=== PATIENT | female | born 1955 | race Two or more races ===

== ENCOUNTER 2025-02-24 15:24 | Inpatient (IN) | payer OTHER, MEDICAID ==
[~2025-02-24] VITALS: Ht 160 cm; Wt 68.5 kg
--- NOTE | 2025-02-24 16:36 | ED.PDOC ---
Musculoskeletal HPI Comments This is a 69 year old female presenting to the ED with chief complaint of right knee pain. Patient reports that she has been experiencing right knee pain for the past 2 weeks since falling when cleaning her bathtub and injuring her right knee. Patient relays that she is finding it more difficult to walk on her own and has 10/10 at this time. Patient states she is unable to get up from sitting on her own. Denies skin color changes around the knee Denies masses around the knee Denies popping/locking/giving out of the knee Denies fever chills night sweats nausea vomiting Denies previous surgeries to the knee nor significant injury Chief Complaint: Lower Extremity Time Seen by MD: 16:25 Reviewed Notes: Nurses Notes, Medications, Allergies Allergies: Coded Allergies: NO KNOWN ALLERGIES (Unverified , 02/24/25) Home Meds Active Scripts Hydrocodone-Acetaminophen (Hydrocodone Bitartrate/AC 5-325 mg) 1 Tab Tab, 1 TAB PO QID PRN, #40 TAB Prov:SHIRA MONTES MD 02/26/25 Reported Medications Atorvastatin Calcium (ATORVASTATIN CALCIUM) 20 Mg Tab, 1 TAB PO DAILY, #30 TAB 5 Refills 02/24/25 Calcium Carbonate-Cholecalcife (Oyster Shell Calcium 500-10 mg-Mcg) 1 Tab Tab, 1 TAB PO, TAB 02/24/25 Aspirin (Aspirin Low Dose) 81 Mg Chw, 1 TAB PO DAILY, #30 TAB 3 Refills 02/24/25 Hydrochlorothiazide (Hydrochlorothiazide) 25 Mg Tab, 1 TAB PO DAILY, #30 TAB 5 Refills 02/24/25 Information Source: Patient Mode of Arrival: Ambulatory Location: Right Extremity Location: Knee Timing: Weeks Prehospital treatment: None Severity: Moderate Able to Move Extremity: Yes Bear Weight: Limited Pain: Moderate Mechanism: Blunt Trauma Circumstances: Fall Onset of Symptoms: After Trauma Symptoms: Pain DVT Risk Factors: NONE Last Tetanus: Unknown Associated signs and symptoms: Knee pain Past Medical History PAST MEDICAL HISTORY: HTN Surgical History: Denies all surgeries FISCAL CLERK History: No Pertinent FISCAL CLERK History Family History Family History: Reviewed,noncontributory to illness Social History Smoker: Non-Smoker Alcohol: Denies ETOH Use Drugs: Denies Drug Use Lives In: Home Constitutional: denies: chills, diaphoresis, fatigue, fever, malaise, sweats, weakness, others EENTM: denies: blurred vision, double vision, ear bleeding, ear discharge, ear drainage, ear pain, ear ringing, eye pain, eye redness, hearing loss, mouth pain, mouth swelling, nasal discharge, nose bleeding, nose congestion, nose pain, photophobia, tearing, throat pain, throat swelling, voice changes, others Respiratory: denies: cough, hemoptysis, orthopnea, SOB at rest, shortness of breath, SOB with excertion, stridor, wheezing, others Cardiovascular: denies: chest pain, dizzy spells, diaphoresis, Dyspnea on exertion, edema, irregular heart beat, left arm pain, lightheadedness, palpitations, PND, syncope, others Gastrointestinal: denies: abdomen distended, abdominal pain, blood streaked bowels, constipated, diarrhea, dysphagia, difficulty swallowing, hematemesis, melena, nausea, poor appetite, poor fluid intake, rectal bleeding, rectal pain, vomiting, others Genitourinary: denies: abnormal vagina bleeding, burning, dyspareunia, dysuria, flank pain, frequency, hematuria, incontinence, pain, , vagina discharge, urgency, others Neurological: denies: dizziness, fainting, headache, left sided numbness, left sided weakness, numbness, paresthesia, pre-existing deficit, right sided numbness, right sided weakness, seizure, speech problems, tingling, tremors, weakness, others Musculoskeletal: reports: others (Rt knee pain); denies: back pain, gout, joint pain, joint swelling, muscle pain, muscle stiffness, neck pain Integumetry: denies: bruises, change in color, change in hair/nails, dryness, laceration, lesions, lumps, rash, wounds, others Allergic/Immunocompromised: denies: Difficulty Healing, Frequent Infections, Hives, Itching, others Hematologic/Lymphatic: denies: anemia, blood clots, easy bleeding, easy bruisin g, swollen glands, others Endocrine: denies: excessive hunger, excessive sweating, excessive thirst, excessive urination, flushing, intolerance to cold, intolerance to heat, unexplained weight gain, unexplained weight loss, others Psychiatric: denies: anxiety, bipolar disorder, depression, hopeless, panic disorder, schizophrenia, sleepless, suicidal, others All Other Systems: Reviewed and Negative Physical Exam General Appearance: No Apparent Distress, Normal HEENT: Normal ENT Inspection, Pharynx Normal, TMs Normal Neck: Full Range of Motion, Non-Tender, Normal, Normal Inspection Respiratory: Chest Non-Tender, Lungs Clear, No Accessory Muscle Use, No Respiratory Distress, Normal Breath Sounds Cardiovascular: No Edema, No JVD, No Murmur, No Gallop, Normal Peripheral Pulses, Regular Rate/Rhythm Breast Exam: Deferred Gastrointestinal: No Organomegaly, Non Tender, No Pulsatile Mass, Normal Bowel Sounds, Soft Genitalia: Deferred Pelvic: Deferred Rectal: Deferred Extremities: No calf tenderness, Normal capillary refill, Normal inspection, Normal range of motion, Non-tender, No pedal edema Musculoskeletal : Location: Right Extremity Location: Knee (Rt knee TTP. Pain with flexion.) Apperance: Normal Neurologic: Alert, industrial education teacher II-XII nml as Tested, No Motor Deficits, Normal Affect, Normal Mood, No Sensory Deficits Cerebellar Function: Normal Reflexes: Normal Skin: Dry, Normal Color, Warm Lymphatic: No Adenopathy Was a procedure done? Was a procedure done?: No Differential Diagnosis EXT Differential Diagnosis: Fracture, Sprain, Contusion, Strain X-Ray, Labs, Meds, VS Vital Signs Date Time Temp Pulse Resp B/P (MAP) Pulse Ox O2 Delivery O2 Flow Rate FiO2 02/24/25 18:30 Room Air* 0 21 02/24/25 18:25 98.1 85 12 137/67 (90) 98 98.1 02/24/25 15:25 97.3 101 18 136/62 95 97.3 Lab Test 02/24/25 16:45 Range/Units White Blood Count 13.1 H 4.4-10.8 10^3/uL Red Blood Count 5.53 H 4.0-5.20 10^6/uL Hemoglobin 14.1 12.2-16.2 g/dL Hematocrit 43.0 36.0-46.0 % Mean Corpuscular Volume 77.7 L 80.0-100.0 fL Mean Corpuscular Hemoglobin 25.4 L 28.0-32.0 pg Mean Corpuscular Hemoglobin Concent 32.7 32.0-36.0 g/dL Red Cell Distribution Width 16.1 H 11.8-14.3 % Platelet Count 377 140-450 10^3/uL Mean Platelet Volume 8.9 6.9-10.8 fL Neutrophils (%) (Auto) 77.6 37.0-80.0 % Lymphocytes (%) (Auto) 13.5 10.0-50.0 % Monocytes (%) (Auto) 7.3 0.0-12.0 % Eosinophils (%) (Auto) 0.9 0.0-7.0 % Basophils (%) (Auto) 0.7 0.0-2.0 % Neutrophils # (Auto) 10.1 H 1.6-8.6 10 ^3/uL Lymphocytes # (Auto) 1.8 0.4-5.4 10 ^3/uL Monocytes # (Auto) 1.0 0-1.3 10 ^3/uL Eosinophils # (Auto) 0.1 0-0.8 10 ^3/uL Basophils # (Auto) 0.1 0-0.2 10 ^3/uL Nucleated Red Blood Cells 0.1 % Sodium Level 134 L 136-145 mmol/L Potassium Level 3.2 L 3.5-5.1 mmol/L Chloride Level 95 L 98-107 mmol/L Carbon Dioxide Level 26 20-31 mmol/L Anion Gap 13 5-15 Blood Urea Nitrogen 17 9-23 mg/dL Creatinine 1.19 H 0.550-1.02 mg/dL Glomerular Filtration Rate Calc 49 >90 mL/min BUN/Creatinine Ratio 14.3 10.0-20.0 Serum Glucose 401 *H 74-106 mg/dL Hemoglobin A1c 9.9 H <5.7 % A1C Calcium Level 10.0 8.7-10.4 mg/dL [place] [id number] Ph: [phone] DIAGNOSTIC IMAGING Diagnostic Imaging Report : [id number] Signed PATIENT: SORAYA CHRISTIAN ACCT: [id number] UNIT: [id number] : 1955 LOC: ER ROOM / BED: / AGE / SEX: 69 / F ADM STATUS: REG ER SERVICE [id number] ORDERING PHYSICIAN: MICHEAL WOLF NP PROCEDURE(s): RKNCT - CT R KNEE WO CONTRAST REASON: Fall. ORDER NUMBER(s): [id number], ACCESSION NUMBER(s): [id number] EXAM: CT CT R KNEE WO CONTRAST INDICATION: Fall. TECHNIQUE: Axial images of right knee without contrast have been obtained along with coronal and sagittal reformatted images. All CT scans at this facility use dose modulation, iterative reconstruction, and/or weight based dosing when appropriate to reduce radiation dose to as low as reasonably achievable. COMPARISON: None FINDINGS: BONES: No CT evidence of an acute fracture or aggressive osseous lesion. Diffusely decreased bone mineral density. MUSCLES: No abnormal attenuation. JOINT SPACES: No joint effusion. TENDONS/LIGAMENTS: Intact. OTHER: Vascular calcifications. IMPRESSION: 1. No CT evidence of an acute fracture. ATED BY: GABRIELA GUERRIER MD DICTATED DATE/TIME: 02/24/251702 SIGNED BY: GABRIELA GUERRIER MD SIGNED DATE/TIME: 02/24/251702 CC: X-Ray, Labs, Meds, VS Comment This is a 69 year old female presenting to the ED with chief complaint of right knee pain. Patient arrives alert and oriented, ABC's intact, afebrile, vital signs stable, saturating well in room air Peripheral IV insertion+ labs were ordered. CBC was ordered to exclude anemia, blood loss, or infection. BMP was ordered to exclude electrolyte abnormalities, renal failure, dehydration, hyperglycemia Urinalysis was ordered to rule out UTI or hematuria. Diagnostic imaging ordered by me and results interpreted by radiology : Rt knee CT Labs show normal electrolytes and elevated blood sugar at 400 Patients work up was remarkable for pain with possible ligament injury. The patient may benefit from MRI. Patient will also be admitted for hyperglycemia The patient's workup reveals that the patient needs further evaluation and/or treatment for the above medical conditions. Patient verbalized understanding of the above and is awaiting further evaluation by the admitting service. Time of 1ST Reevaluation: 17:00 Reevaluation 1ST: Unchanged Patient Education/Counseling: Diagnosis, Treatment Family Education/Counseling: No Family Present Departure 1 Departure Time of Disposition: 17:13 Impression: Primary Impression: Internal derangement of knee Qualified Codes: M23.91 - Unspecified internal derangement of right knee Additional Impressions: Hyperglycemia Fall Qualified Codes: W19.XXXA - Unspecified fall, initial encounter Disposition: ADMITTED INPATIENT Condition: Fair e-Prescriptions Hydrocodone-Acetaminophen (Hydrocodone Bitartrate/AC 5-325 mg) 1 Tab Tab 1 TAB PO QID PRN, #40 TAB Prov: SHIRA MONTES MD 02/26/25 Discharged With: Self Critical Care Note Critical Care Time?: No Stability Stability form required: No Heart Score Heart Score: Heart Score Response (Comments) Value History N/A 0 EKG N/A 0 Age N/A 0 Risk Factors N/A 0 Troponin N/A 0 Total 0 I personally scribed for MICHEAL WOLF NP ([email or web address]) on 02/24/25 at 16:36. Electronically submitted by Veit Napier ([email or web address]). I personally scribed for MICHEAL WOLF NP ([email or web address]) on 02/24/25 at 17:13. Electronically submitted by Viet Napier ([email or web address]). MICHEAL WOLF NP Feb 24, 2025 16:36
[2025-02-24 16:56] LABS: Hematocrit 43.0 % (36.0-46.0); Hemoglobin 14.1 g/dL (12.2-16.2); Mean Corpuscular Hemoglobin 25.4 pg (28.0-32.0); Mean Corpuscular Volume 77.7 fL (80.0-100.0); Nucleated Red Blood Cells % 0.1 %
[2025-02-24 17:03] LABS: Anion Gap 13 (5-15); Calcium 10.0 mg/dL (8.7-10.4); Carbon Dioxide 26 mmol/L (20-31); Chloride 95 mmol/L (98-107); Potassium 3.2 mmol/L (3.5-5.1); Sodium 134 mmol/L (136-145)
--- NOTE | 2025-02-24 17:06 | DVH ---
EXAM: CT CT R KNEE WO CONTRAST INDICATION: Fall. TECHNIQUE: Axial images of right knee without contrast have been obtained along with coronal and sagi ttal reformatted images. All CT scans at this facility use dose modulation, iterative reconstruction, and/or weight based dosing when appropriate to reduce radiation dose to as low as reasonably achieva ble. COMPARISON: None FINDINGS: BONES: No CT evidence of an acute fracture or aggressive osseous lesion. Diffusely decreased bone min eral density. MUSCLES: No abnormal attenuation. JOINT SPACES: No joint effusion. TENDONS/LIGAMENTS: Intact. OTHER: Vascular calcifications. IMPRESSION: 1. No CT evidence of an acute fracture.
[2025-02-24 17:08] LABS: BUN/Creatinine Ratio 14.3 (10.0-20.0); Blood Urea Nitrogen 17 mg/dL (9-23)
[2025-02-24 17:13] LABS: Glucose 401 mg/dL (74-106)
[2025-02-24] MEDS ORDERED: InsuLIN REG 1unit/0.01ml Soln (100units/ml) SC ONE (17:30)
[2025-02-24] MEDS ORDERED: DEXTROSE (50%) 50ML SYRG IV PRN (19:00)
[2025-02-24] MEDS ORDERED: ACETAMINOPHEN 325 MG TAB PO PRN (19:00)
[2025-02-24] MEDS ORDERED: DOCUSATE SOD 100 MG CAP PO PRN (19:00)
--- NOTE | 2025-02-24 19:10 | DVHHP2 ---
History of Present Illness Reason for Visit: Internal derangement of knee History of Present Illness The patient is a 69-year-old female with past medical history of hyperlipidemia, hypertension, and diabetes mellitus who presented to [facility] ED with complaint of right knee pain. Patient reports that she has been experiencing right knee pain for the past 2 weeks since falling when cleaning her bathtub with sustained right knee injury. Patient states that she is finding it more difficult to walk on her own, rating pain 10/10 numeric scale at this time. Patient was seen and evaluated in the ED, laboratory data shows WBC 13.1, platelets 377, sodium 134, potassium 3.2, BUN 17, creatinine 1.19, GFR 49, glucose 101, calcium 10.0, blood pressure 136/62, heart rate 100, temperature 97.3 F, O2 saturation 95% on room air. Right knee CT showed no acute fracture, effusion or dislocation. Patient was given morphine sulfate 2 mg IV x1, please see medication orders section in the computer. On my assessment, patient denied chest pain, no dizziness, no headache, no shortness of breath, no abdominal pain, no nausea, no vomiting, no fever, no chills. Patient was admitted for further evaluation and medical management. Past Medical History HTN, DM, HLD Past Surgical History Denies all surgeries Family History Reviewed, noncontributory to the management of this case. Past Social History The patient lives at home, denies smoking, alcohol or illicit drugs abuse. Review of Systems Constitutional: No: Fever, Chills, Sweats, Weakness, Malaise, Other Eyes: No: Pain, Vision change, Conjunctivae inflammation, Eyelid inflammation, Other, Redness ENT: No: Ear pain, Ear discharge, Nose pain, Nose discharge, Nose congestion, Mouth pain, Mouth swelling, Throat pain, Throat swelling, Other Respiratory: No: Cough, Dry, Shortness of breath, SOB with excertion, Wheezing, Hemoptysis, Pleuritic Pain, Sputum, Wheezing, Other Cardiovascular: No: Chest Pain, Palpitations, Orthopnea, Paroxysmal Noc. Dyspnea, Edema, Lt Headedness, Other Gastrointestinal: No: Nausea, Vomiting, Abdominal Pain, Diarrhea, Constipation, Melena, Hematochezia, Other Genitourinary: No Dysuria, No Frequency, No Incontinence, No Hematuria, No Retention, No Other Musculoskeletal: other (Right knee pain); No: neck pain, shoulder pain, arm pain, back pain, hand pain, leg pain, foot pain Skin: No: Rash, Lesions, Jaundice, Bruising, Other Neurological: No: Weakness, Numbness, Incoordination, Change in speech, Confusion, Seizures, Other Allergies: Coded Allergies: NO KNOWN ALLERGIES (Unverified , 02/24/25) Medications Current Medications Medications Dose Ordered Sig/Nuzhat Route Start Time Stop Time Status Last Admin Dose Admin Atorvastatin Calcium 20 mg HS PO 02/24/25 22:00 UNV Aspirin 81 mg DAILY PO 02/25/25 10:00 UNV Diagnostic Test (Pha) 1 strip IQ4HR 02/24/25 20:00 UNV Insulin Human Regular IQ4HR SC 02/24/25 20:00 UNV Dextrose 50 ml UD PRN IV 02/24/25 19:00 UNV Sodium Chloride 1,000 ml @ 60 mls/hr [id number] IV 02/24/25 19:00 UNV Acetaminophen/ Hydrocodone Bitart 1 tab Q4HP PRN PO 02/24/25 19:00 UNV Ondansetron HCl 4 mg Q4HP PRN IV 02/24/25 19:00 UNV Docusate Sodium 100 mg BIDPRN PRN PO 02/24/25 19:00 UNV Acetaminophen 650 mg Q6HP PRN PO 02/24/25 19:00 UNV Morphine Sulfate 2 mg Q4HPRN PRN IV 02/24/25 19:00 UNV Quetiapine Fumarate 25 mg HS PO 02/24/25 22:00 UNV Gabapentin 300 mg TID PO 02/24/25 22:00 UNV Exam Vital Signs Vital Signs Date Time Temp Pulse Resp B/P (MAP) Pulse Ox O2 Delivery O2 Flow Rate FiO2 02/24/25 15:25 97.3 101 18 136/62 95 97.3 General Appearance: Alert, Oriented X3, Cooperative, No acute distress HEENT: Atraumatic, PERRLA, EOMI, Mucous membr. moist/pink Respiratory: Clear to auscultation, Normal air movement Cardiovascular: Regular rate, Normal S1, Normal S2, No murmurs Abdominal: Normal bowel sounds, Soft, No tenderness, No hepatospenomegaly, No masses Extremities: No clubbing, No cyanosis, No edema, Normal pulses, Other (Right knee tenderness) Skin: No rashes, No breakdown, No significant lesion Neuro: Normal speech, Normal tone, Sensation intact, Cranial nerves 3-12 NL, Re flexes 2+, Other (Unsteady gait) Psych/Mental Status: Mental status NL, Mood NL Labs/Xrays Labs Test 02/24/25 16:45 Range/Units White Blood Count 13.1 H 4.4-10.8 10^3/uL Red Blood Count 5.53 H 4.0-5.20 10^6/uL Hemoglobin 14.1 12.2-16.2 g/dL Hematocrit 43.0 36.0-46.0 % Mean Corpuscular Volume 77.7 L 80.0-100.0 fL Mean Corpuscular Hemoglobin 25.4 L 28.0-32.0 pg Mean Corpuscular Hemoglobin Concent 32.7 32.0-36.0 g/dL Red Cell Distribution Width 16.1 H 11.8-14.3 % Platelet Count 377 140-450 10^3/uL Mean Platelet Volume 8.9 6.9-10.8 fL Neutrophils (%) (Auto) 77.6 37.0-80.0 % Lymphocytes (%) (Auto) 13.5 10.0-50.0 % Monocytes (%) (Auto) 7.3 0.0-12.0 % Eosinophils (%) (Auto) 0.9 0.0-7.0 % Basophils (%) (Auto) 0.7 0.0-2.0 % Neutrophils # (Auto) 10.1 H 1.6-8.6 10 ^3/uL Lymphocytes # (Auto) 1.8 0.4-5.4 10 ^3/uL Monocytes # (Auto) 1.0 0-1.3 10 ^3/uL Eosinophils # (Auto) 0.1 0-0.8 10 ^3/uL Basophils # (Auto) 0.1 0-0.2 10 ^3/uL Nucleated Red Blood Cells 0.1 % Sodium Level 134 L 136-145 mmol/L Potassium Level 3.2 L 3.5-5.1 mmol/L Chloride Level 95 L 98-107 mmol/L Carbon Dioxide Level 26 20-31 mmol/L Anion Gap 13 5-15 Blood Urea Nitrogen 17 9-23 mg/dL Creatinine 1.19 H 0.550-1.02 mg/dL Glomerular Filtration Rate Calc 49 >90 mL/min BUN/Creatinine Ratio 14.3 10.0-20.0 Serum Glucose 401 *H 74-106 mg/dL Calcium Level 10.0 8.7-10.4 mg/dL PATIENT: SORAYA CHRISTIAN ACCT: [id number] UNIT: [id number] : 1955 LOC: ER ROOM / BED: / AGE / SEX: 69 / F ADM STATUS: REG ER SERVICE 1607 ORDERING PHYSICIAN: MICHEAL WOLF NP PROCEDURE(s): RKNCT - CT R KNEE WO CONTRAST REASON: Fall. ORDER NUMBER(s): [id number], ACCESSION NUMBER(s): [id number] EXAM: CT CT R KNEE WO CONTRAST INDICATION: Fall. TECHNIQUE: Axial images of right knee without contrast have been obtained along with coronal and sagittal reformatted images. All CT scans at this facility use dose modulation, iterative reconstruction, and/or weight based dosing when appropriate to reduce radiation dose to as low as reasonably achievable. COMPARISON: None FINDINGS: BONES: No CT evidence of an acute fracture or aggressive osseous lesion. Diffusely decreased bone mineral density. MUSCLES: No abnormal attenuation. JOINT SPACES: No joint effusion. TENDONS/LIGAMENTS: Intact. OTHER: Vascular calcifications. IMPRESSION: 1. No CT evidence of an acute fracture. SEPSIS Sepsis Screen Date sepsis recognized/suspect: Feb 24, 2025 Time Sepsis recognized/suspect: 1325 Recent Procedure: No On Antibiotic Therapy: No Respiratory Rate >20: No Heart Rate >90: Yes Temp<36 C (96.8 F) or >38.3 C: No SBP <90 or MAP <65 mmHG: No New Acute Mental Status Change: No Is the patient on CPAP, BIPAP,: No Physician Orders Ct R Knee Wo Contrast (02/24/25 16:07) Urinalysis (02/24/25 16:07) Sodium Chloride 0.9% (02/24/25 19:00) Hemoglobin A1c (02/24/25 18:48) Atorvastatin (Lipitor) (02/24/25 22:00) Aspirin Tablet (02/25/25 10:00) Glucose Blood (Accu-Chek Comfort Curve T (02/24/25 20:00) Insulin R (Human) (Insulin R) (02/24/25 20:00) Dextrose 50% Syringe (02/24/25 19:00) Allergies (02/24/25 18:48) Code Status (02/24/25 18:48) Sodium Chloride 0.9% (02/24/25 19:00) Oxygen Per Hour (02/24/25 18:48) Hydrocodone-Acet 5/325mg Tab ([place] 5/32 (02/24/25 19:00) Ondansetron Hcl (Zofran) (02/24/25 19:00) Docusate Sodium Capsule (Colace Capsule) (02/24/25 19:00) Complete Blood Count (02/25/25 04:00) Comprehensive Metabolic Panel (02/25/25 04:00) Condition: Serious (02/24/25 18:48) Acetaminophen Tablet (Tylenol Tablet) (02/24/25 19:00) Bedrest With Bathroom Privileg (02/24/25 18:48) Morphine Sulfate Injection (02/24/25 19:00) Sequential Compression Device (02/24/25 ) Quetiapine Fumarate Tablet (Seroquel Tab (02/24/25 22:00) Gabapentin Capsule (Neurontin Capsule) (02/24/25 22:00) Admit (02/24/25 19:07) Nitroglycerin Sublingual (Ntrostat Subli (02/24/25 19:15) Morphine Sulfate Injection (02/24/25 19:15) Notify Md Of Changes From Base (02/24/25 19:07) Emergency Dysrhythmia Protocol (02/24/25 19:07) Oxygen By Nasal Cannula (02/24/25 19:07) Ceftriaxone Ivpb Rocephin (02/25/25 09:00) Ceftriaxone Ivpb Rocephin (02/24/25 19:15) Vital Signs Date Time Temp Pulse Resp B/P (MAP) Pulse Ox O2 Delivery O2 Flow Rate FiO2 02/24/25 15:25 97.3 101 18 136/62 95 97.3 Laboratory Tests Test 02/24/25 16:45 White Blood Count 13.1 10^3/uL (4.4-10.8) H Assessment/Plan Assessment/Plan Internal derangement of knee Leukocytosis, unspecified Electrolyte imbalance Unspecified internal derangement of right knee Diabetes mellitus with hyperglycemia Unspecified fall, initial encounter Plan 1. Admit to med surge unit 2. Breathing treatment 3. Pain control management 4. IV antibiotic management 5. Management of fluids and electrolytes 6. Consultation for hospitalist 7. Diagnostic test right knee CT 8. DVT prophylaxis-on SCDs 9. Repeat labs CBC, CMP in a.m. 10. Home medication reviewed and reconciled 11. Continue with current medical management 12. Treatment plan discussed with patient and RN. Patient verbalized understanding. Plan discussed with: Patient, Other (RN) My Orders Orders - DINESH ARTEAGA DNP Procedure Category Date Status Time Hemoglobin A1c LAB 02/24/25 In Process 18:48 Atorvastatin (Lipitor) PHA 02/24/25 Logged 22:00 Aspirin Tablet PHA 02/25/25 Logged 10:00 Glucose Blood PHA 02/24/25 Logged (Accu-Chek Comfort 20:00 Insulin R (Human) PHA 02/24/25 Logged (Insulin R) 20:00 Dextrose 50% Syringe PHA 02/24/25 Logged 19:00 Allergies GUME 02/24/25 In Process 18:48 Code Status CODE 02/24/25 Transmitted 18:48 Sodium Chloride 0.9% PHA 02/24/25 Logged 19:00 Oxygen Per Hour RT 02/24/25 Transmitted 18:48 Hydrocodone-Acet PHA 02/24/25 Logged 5/325mg Tab ([place] 19:00 Ondansetron Hcl PHA 02/24/25 Logged (Zofran) 19:00 Docusate Sodium PHA 02/24/25 Logged Capsule (Colace 19:00 Complete Blood Count LAB 02/25/25 Verified 04:00 Comprehensive LAB 02/25/25 Verified Metabolic Panel 04:00 Condition: Serious GUME 02/24/25 In Process 18:48 Acetaminophen Tablet PHA 02/24/25 Logged (Tylenol Tablet) 19:00 Bedrest With Bathroom GUME 02/24/25 In Process Privileg 18:48 Morphine Sulfate PHA 02/24/25 Logged Injection 19:00 Sequential GUME 02/24/25 In Process Compression Device Quetiapine Fumarate PHA 02/24/25 Logged Tablet (Seroquel Tab 22:00 Gabapentin Capsule PHA 02/24/25 Logged (Neurontin Capsule) 22:00 Admit ADMIT 02/24/25 Transmitted 19:07 Nitroglycerin [facility] 02/24/25 Logged Sublingual (Ntrostat 19:15 Morphine Sulfate PHA 02/24/25 Logged Injection 19:15 Notify Md Of Changes GUME 02/24/25 In Process From Base 19:07 Emergency Dysrhythmia [facility] 02/24/25 In Process Protocol 19:07 Oxygen By Nasal RT 02/24/25 Transmitted Cannula 19:07 Ceftriaxone Ivpb PHA 02/25/25 Verified Rocephin 09:00 Ceftriaxone Ivpb PHA 02/24/25 Verified Rocephin 19:15 Problem List: (1) Internal derangement of knee (2) Leukocytosis, unspecified (3) Electrolyte imbalance (4) Unspecified internal derangement of right knee (5) Diabetes mellitus with hyperglycemia (6) Unspecified fall, initial encounter Date of Service: Feb 24, 2025 Billing Provider: DINESH ARTEAGA DNP Common Visit Codes: [id number] INP/OBS CARE (HIGH) DINESH ARTEAGA DNP Feb 24, 2025 19:10
[2025-02-24] MEDS ORDERED: NITROGLYCERIN 0.4 MG SL TAB SL PRN (19:15)
[2025-02-24] MEDS ORDERED: MORPHINE SULFATE INJ 2 MG/ml SYRG IV PRN (19:15)
[2025-02-24] MEDS: SODIUM CHLORIDE 0.9% 1,000 ML IV ONE (19:34)
[2025-02-24] MEDS: POTASSIUM CHL 20 Meq TABLET PO ONE (19:34)
[2025-02-24] MEDS: ACCU-CHEK COMFORT CURVE STRIP VI SCH (20:21)
[2025-02-24] MEDS: HYDROcodone-ACET 5/325MG TAB PO PRN (20:28)
[2025-02-24] MEDS: ONDANSETRON HCL 4 MG/2 ML VIAL IV PRN (20:28)
[2025-02-24] MEDS: cefTRIAXone 1GM/50ML D5W 50 ML IV ONE (20:29)
[2025-02-24] MEDS: InsuLIN REG 1unit/0.01ml Soln (100units/ml) SC SCH (20:31)
[2025-02-24 22:26] VITALS: BP 143/50; PULSE 70; RESP 19; RESP 70; TEMP 98; O2SAT 97
[2025-02-24] MEDS: GABAPENTIN 300 MG CAP PO SCH (22:29)
[2025-02-24] MEDS: ATORVASTATIN 20 MG TAB PO SCH (22:29)
[2025-02-24] MEDS: SODIUM CHLORIDE 0.9% 1,000 ML IV SCH (22:30)
[2025-02-24] MEDS: MORPHINE SULFATE INJ 2 MG/ml SYRG IV PRN (22:49)
[2025-02-24] MEDS ORDERED: HYDR25TA4 PO (23:15)
[2025-02-24] MEDS ORDERED: ASPI81CH59 PO (23:15)
[2025-02-24] MEDS ORDERED: [UNRECOGNIZED DRUG - CODE] PO (23:15)
[2025-02-24] MEDS ORDERED: ATOR20TA50 PO (23:15)
[2025-02-25 00:59] VITALS: BP 106/61; PULSE 71; RESP 19; TEMP 97.9; O2SAT 98
[2025-02-25 05:26] VITALS: BP 112/61; PULSE 66; RESP 20; TEMP 98; O2SAT 96
[2025-02-25 07:19] LABS: Hematocrit 38.1 % (36.0-46.0); Hemoglobin 12.9 g/dL (12.2-16.2); Mean Corpuscular Hemoglobin 26.4 pg (28.0-32.0); Mean Corpuscular Volume 78.0 fL (80.0-100.0); Nucleated Red Blood Cells % 0.1 %
[2025-02-25 07:26] LABS: Alanine Aminotransferase 17 U/L (7-40); Alkaline Phosphatase 93 U/L (46-116); Anion Gap 11 (5-15); BUN/Creatinine Ratio 12.9 (10.0-20.0); Blood Urea Nitrogen 11 mg/dL (9-23); Calcium 8.9 mg/dL (8.7-10.4); Carbon Dioxide 26 mmol/L (20-31); Chloride 100 mmol/L (98-107); Sodium 137 mmol/L (136-145); Total Protein 6.2 g/dL (5.7-8.2)
[2025-02-25 07:28] LABS: Albumin 4.0 g/dL (3.2-4.8); Bilirubin, Total 0.4 mg/dL (0.2-1.0)
[2025-02-25 07:31] LABS: Glucose 268 mg/dL (74-106); Potassium 3.2 mmol/L (3.5-5.1)
[2025-02-25 08:00] VITALS: BP 117/76; PULSE 67; RESP 18; TEMP 98.5; O2SAT 96
[2025-02-25] MEDS: cefTRIAXone 1GM/50ML D5W 50 ML IV SCH (09:06)
[2025-02-25 13:00] VITALS: BP 101/60; PULSE 66; RESP 18; TEMP 98.4; O2SAT 96
--- NOTE | 2025-02-25 13:16 | DVHPN2 ---
Reviewed: Care Plan, H&P, Labs, Medications, Previous Orders, Radiology Changes from previous H/P or p: No Changes Eyes: No Pain, No Vision change, No Conjunctivae inflammation, No Eyelid inflammation, No Other, No Redness ENT: No Ear pain, No Ear discharge, No Nose pain, No Nose discharge, No Nose congestion, No Mouth pain, No Mouth swelling, No Throat pain, No Throat swelling, No Other Cardiovascular: No Chest Pain, No Palpitations, No Orthopnea, No Paroxysmal Noc. Dyspnea, No Edema, No Lt Headedness, No Other Respiratory: No Cough, No Dry, No Shortness of breath, No SOB with excertion, No Wheezing, No Hemoptysis, No Pleuritic Pain, No Sputum, No Other Gastrointestinal: No Nausea, No Vomiting, No Abdominal Pain, No Diarrhea, No Constipation, No Melena, No Hematochezia, No Other Genitourinary: No Dysuria, No Frequency, No Incontinence, No Hematuria, No Retention, No Other Musculoskeletal: other (Right knee pain); No neck pain, No shoulder pain, No arm pain, No back pain, No hand pain, No leg pain, No foot pain Skin: No Rash, No Lesions, No Jaundice, No Bruising, No Other Objective Vitals Vital Signs Date Time Temp Pulse Resp B/P (MAP) Pulse Ox O2 Delivery O2 Flow Rate FiO2 02/25/25 08:00 98.5 67 18 117/76 (90) 96 98.5 02/24/25 22:26 Room Air* 0 21 Intake/Output Intake and Output 02/25/25 07:00 Intake Total 400 ml Balance 400 ml Intake Oral 400 ml # Voids 1 Medications Current Medications Medications Dose Ordered Sig/Nuzhat Route Start Time Stop Time Status Last Admin Dose Admin Atorvastatin Calcium 20 mg HS PO 02/24/25 22:00 02/24/25 22:29 20 MG Aspirin 81 mg DAILY PO 02/25/25 10:00 02/25/25 09:06 81 MG Diagnostic Test (Pha) 1 strip IQ4HR 02/24/25 20:00 02/25/25 09:07 1 STRIP Insulin Human Regular IQ4HR SC 02/24/25 20:00 02/25/25 09:39 12 UNITS Dextrose 50 ml UD PRN IV 02/24/25 19:00 Sodium Chloride 1,000 ml @ 60 mls/hr [id number] IV 02/24/25 19:00 02/24/25 22:30 60 MLS/HR Acetaminophen/ Hydrocodone Bitart 1 tab Q4HP PRN PO 02/24/25 19:00 02/25/25 09:42 1 TAB Ondansetron HCl 4 mg Q4HP PRN IV 02/24/25 19:00 02/24/25 20:28 4 MG Docusate Sodium 100 mg BIDPRN PRN PO 02/24/25 19:00 Acetaminophen 650 mg Q6HP PRN PO 02/24/25 19:00 Morphine Sulfate 2 mg Q4HPRN PRN IV 02/24/25 19:00 02/25/25 04:02 2 MG Quetiapine Fumarate 25 mg HS PO 02/24/25 22:00 02/24/25 22:29 25 MG Gabapentin 300 mg TID PO 02/24/25 22:00 02/25/25 05:41 300 MG Nitroglycerin 0.4 mg Q5MINP PRN SL 02/24/25 19:15 Morphine Sulfate 2 mg Q30M PRN IV 02/24/25 19:15 Ceftriaxone Sodium 50 ml @ 100 mls/hr DAILY@09 IV 02/25/25 09:00 02/25/25 09:06 100 MLS/HR Laboratory Results Laboratory Tests 02/25/25 06:15 Chemistry Test 02/24/25 16:45 02/25/25 06:15 Calcium Level 10.0 mg/dL (8.7-10.4) 8.9 mg/dL (8.7-10.4) Albumin 4.0 g/dL (3.2-4.8) Total Protein 6.2 g/dL (5.7-8.2) LFT Test 02/25/25 06:15 Alanine Aminotransferase (ALT) 17 U/L (7-40) Alkaline Phosphatase 93 U/L (46-116) Aspartate Amino Transferase (AST) 20 U/L (13-40) Total Bilirubin 0.4 mg/dL (0.2-1.0) HgA1c, TSH Test 02/24/25 16:45 Hemoglobin A1c 9.9 % A1C (<5.7) H Labs and/or images reviewed: Labs reviewed by me, Image(s) reviewed by me Assessment/Plan Assessment/Plan Acute right knee pain status post mechanical fall two weeks ago, x-ray negative ordered CT right knee, consult for ortho Dr Sadler Uncontrolled diabetes type 2 with blood glucose 401 A1c 9.9 aggressive insulin sliding scale Mechanical fall Hypercholesterolemia Hypertension Time spent 55 minutes Patient is full code Advanced care planning time 20 minutes Plan discussed with: Patient My Orders Orders - SHIRA MONTES MD Procedure Category Date Status Time * Orthopedic Consult CONS 02/25/25 Transmitted 13:11 Ct R Knee Wo Contrast CT 02/25/25 Verified 13:13 Date of Service: Feb 25, 2025 Billing Provider: SHIRA OMNTES MD Common Visit Codes: [id number] INP/OBS CARE(HIGH) Secondary Visit Codes: [id number] CARE PLAN 30 MINUTES SHIRA MONTES MD Feb 25, 2025 13:16
[2025-02-25] MEDS: LORazepam 2MG/ML-1ML VIAL IV ONE (14:53)
--- NOTE | 2025-02-25 15:39 | DVH ---
EXAM: MRI RT KNEE WITH OUT CON INDICATION: Right knee injury TECHNIQUE: Multiplanar and multisequence MR imaging of the right ankle was performed in the absence o f gadolinium contrast. COMPARISON: None FINDINGS: The medial and lateral menisci are intact The anterior and posterior cruciate ligaments are intact. The medial and lateral collateral ligaments are intact. Quadriceps and patellar tendons are intact Trace joint effusion Hyaline cartilage surfaces covering the patellofemoral joint are thin inferiorly with faint signal in tensity change in the odd facet There is ill-defined area of edema present in the posterior tibial plateau medially and laterally and in the anterior portion of the medial tibial plateau IMPRESSION: 1. Bone bruising involving the medial and lateral tibial plateau (and possibly also the inferior pat marcus) 2. No meniscal or ligamentous tear
[2025-02-25 16:39] VITALS: BP 101/52; PULSE 71; RESP 18; TEMP 98.4; O2SAT 96
--- NOTE | 2025-02-25 18:44 | DVHINCON2 ---
Consult Note Consult Consult Note Patient: 69-year-old female Reason for Consult: Right knee pain after ground-level fall History of Present Illness: The patient is a 69-year-old female who sustained a ground-level fall approximately two weeks ago and has been experiencing persistent right knee pain, particularly with weight-bearing. She was admitted for hyperglycemia management and evaluation of ongoing knee pain. A CT scan performed in the emergency room showed no acute fracture. MRI of the right knee was completed during this admission, which demonstrated bone bruising involving both the medial and lateral tibial plateaus, with associated osteoarthritis of the right knee. No meniscal or ligamentous tears were identified. Exam: Right knee: Tenderness to palpation over joint lines. Range of motion: 0 to 115 degrees, pain noted at terminal range. Pain elicited with weight-bearing. No open wounds, erythema, or effusion noted. Grossly neurovascularly intact. Impression: Right knee bone bruising involving medial and lateral tibial plateaus. Underlying osteoarthritis of the right knee. No evidence of meniscal or ligamentous tear. Case discussed with Dr. Alfonso his recs Plan: Weight-bearing as tolerated with the use of a right knee brace. Provide walker to assist with ambulation. Pain management as per primary team. Outpatient follow-up with orthopedic clinic for ongoing care and monitoring. Patient may be discharged once brace and walker are provided from Ortho stand point Thank you for the consult. Plan discussed with: Patient, Other (bedside nurse) Visit Coding Surgery Date of Service if different f: Feb 25, 2025 Billing Provider: GINNY WANG Surgery Visit Codes: [id number] - INP CONSULT <55 MIN GINNY WANG Feb 25, 2025 18:44
[2025-02-25 20:30] VITALS: PULSE 80; RESP 16; O2SAT 95
[2025-02-26 01:00] VITALS: BP 108/56; PULSE 71; RESP 18; TEMP 96; O2SAT 94
[2025-02-26 05:00] VITALS: BP 119/69; PULSE 64; RESP 16; TEMP 96.4; O2SAT 94
[2025-02-26 08:00] VITALS: PULSE 63; RESP 18; O2SAT 97
[2025-02-26 09:00] VITALS: BP 109/63; PULSE 63; RESP 18; TEMP 97.7; O2SAT 97
[2025-02-26] MEDS ORDERED: HYDR-4902 PO (11:05)
--- NOTE | 2025-02-26 11:08 | DVHPN2 ---
Subjective Feels much better Reviewed: Care Plan, H&P, Labs, Medications, Previous Orders, Radiology Changes from previous H/P or p: No Changes Eyes: No Pain, No Vision change, No Conjunctivae inflammation, No Eyelid inflammation, No Other, No Redness ENT: No Ear pain, No Ear discharge, No Nose pain, No Nose discharge, No Nose congestion, No Mouth pain, No Mouth swelling, No Throat pain, No Throat swelling, No Other Cardiovascular: No Chest Pain, No Palpitations, No Orthopnea, No Paroxysmal Noc. Dyspnea, No Edema, No Lt Headedness, No Other Respiratory: No Cough, No Dry, No Shortness of breath, No SOB with excertion, No Wheezing, No Hemoptysis, No Pleuritic Pain, No Sputum, No Other Gastrointestinal: No Nausea, No Vomiting, No Abdominal Pain, No Diarrhea, No Constipation, No Melena, No Hematochezia, No Other Genitourinary: No Dysuria, No Frequency, No Incontinence, No Hematuria, No Retention, No Other Musculoskeletal: other (Right knee pain); No neck pain, No shoulder pain, No arm pain, No back pain, No hand pain, No leg pain, No foot pain Skin: No Rash, No Lesions, No Jaundice, No Bruising, No Other Objective Vitals Vital Signs Date Time Temp Pulse Resp B/P (MAP) Pulse Ox O2 Delivery O2 Flow Rate FiO2 02/26/25 09:00 97.7 63 18 109/63 (78) 97 97.7 02/25/25 20:30 Room Air* 0 21 Intake/Output Intake and Output 02/26/25 07:00 Intake Total 750 ml Output Total 600 ml Balance 150 ml Intake Oral 700 ml IV Total 50 ml Output Urine Total 600 ml # Voids 2 Medications Current Medications Medications Dose Ordered Sig/Nuzhat Route Start Time Stop Time Status Last Admin Dose Admin Atorvastatin Calcium 20 mg HS PO 02/24/25 22:00 02/25/25 22:14 20 MG Aspirin 81 mg DAILY PO 02/25/25 10:00 02/26/25 10:53 81 MG Diagnostic Test (Pha) 1 strip IQ4HR 02/24/25 20:00 02/26/25 08:00 1 STRIP Insulin Human Regular IQ4HR SC 02/24/25 20:00 02/26/25 08:59 3 UNITS Dextrose 50 ml UD PRN IV 02/24/25 19:00 Sodium Chloride 1,000 ml @ 60 mls/hr [id number] IV 02/24/25 19:00 02/24/25 22:30 60 MLS/HR Acetaminophen/ Hydrocodone Bitart 1 tab Q4HP PRN PO 02/24/25 19:00 02/26/25 06:09 1 TAB Ondansetron HCl 4 mg Q4HP PRN IV 02/24/25 19:00 02/26/25 06:07 4 MG Docusate Sodium 100 mg BIDPRN PRN PO 02/24/25 19:00 Acetaminophen 650 mg Q6HP PRN PO 02/24/25 19:00 Morphine Sulfate 2 mg Q4HPRN PRN IV 02/24/25 19:00 02/25/25 04:02 2 MG Quetiapine Fumarate 25 mg HS PO 02/24/25 22:00 02/25/25 22:14 25 MG Gabapentin 300 mg TID PO 02/24/25 22:00 02/26/25 06:07 300 MG Nitroglycerin 0.4 mg Q5MINP PRN SL 02/24/25 19:15 Morphine Sulfate 2 mg Q30M PRN IV 02/24/25 19:15 Ceftriaxone Sodium 50 ml @ 100 mls/hr DAILY@09 IV 02/25/25 09:00 02/26/25 08:58 100 MLS/HR Laboratory Results Laboratory Tests 02/25/25 06:15 Labs and/or images reviewed: Labs reviewed by me, Image(s) reviewed by me Assessment/Plan Assessment/Plan Acute right knee pain status post mechanical fall two weeks ago, CT negative for any fracture, MRI right knee shows no fracture no injury to the ligaments or meniscus, only contusion of the medial and lateral aspects of the tibial plateau, ortho Dr. Mabel Gilmore advised weight-bearing as tolerated knee brace and walker and pain medication Uncontrolled diabetes type 2 with blood glucose 401 A1c 9.9 aggressive insulin sliding scale Mechanical fall Hypercholesterolemia Hypertension Time spent 55 minutes Patient is full code Advanced care planning time 20 minutes Plan discussed with: Patient My Orders Orders - SHIRA MONTES MD Procedure Category Date Status Time * Orthopedic Consult CONS 02/25/25 Transmitted 13:11 Rt Knee With Out Con MRI 02/25/25 Resulted 13:24 Dme: Walker DME 02/26/25 Transmitted 11:03 * [employer] CONS 02/26/25 Transmitted Consult Date of Service: Feb 26, 2025 Billing Provider: SHIRA MONTES MD Common Visit Codes: [id number] INP/OBS CARE(HIGH) SHIRA MONTES MD Feb 26, 2025 11:08
--- NOTE | 2025-02-26 11:12 | DVHDS2 ---
Discharge Summary Date of Admission Feb 24, 2025 at 19:07 Date of Discharge: Feb 26, 2025 Admitting Diagnosis Right knee pain status post mechanical fall Wounds: Right knee contusion Labs/Diagnostic Data: Laboratory Results Test 02/26/25 08:13 02/25/25 06:15 02/24/25 16:45 POC Glucose 174 mg/dl (70-106) White Blood Count 10.8 10^3/uL (4.4-10.8) Red Blood Count 4.89 10^6/uL (4.0-5.20) Hemoglobin 12.9 g/dL (12.2-16.2) Hematocrit 38.1 % (36.0-46.0) Mean Corpuscular Volume 78.0 fL (80.0-100.0) Mean Corpuscular Hemoglobin 26.4 pg (28.0-32.0) Mean Corpuscular Hemoglobin Concent 33.9 g/dL (32.0-36.0) Red Cell Distribution Width 16.3 % (11.8-14.3) Platelet Count 291 10^3/uL (140-450) Mean Platelet Volume 8.9 fL (6.9-10.8) Neutrophils (%) (Auto) 58.7 % (37.0-80.0) Lymphocytes (%) (Auto) 30.1 % (10.0-50.0) Monocytes (%) (Auto) 7.1 % (0.0-12.0) Eosinophils (%) (Auto) 3.3 % (0.0-7.0) Basophils (%) (Auto) 0.8 % (0.0-2.0) Neutrophils # (Auto) 6.4 10 ^3/uL (1.6-8.6) Lymphocytes # (Auto) 3.3 10 ^3/uL (0.4-5.4) Monocytes # (Auto) 0.8 10 ^3/uL (0-1.3) Eosinophils # (Auto) 0.4 10 ^3/uL (0-0.8) Basophils # (Auto) 0.1 10 ^3/uL (0-0.2) Nucleated Red Blood Cells 0.1 % Sodium Level 137 mmol/L (136-145) Potassium Level 3.2 mmol/L (3.5-5.1) Chloride Level 100 mmol/L (98-107) Carbon Dioxide Level 26 mmol/L (20-31) Anion Gap 11 (5-15) Blood Urea Nitrogen 11 mg/dL (9-23) Creatinine 0.85 mg/dL (0.550-1.02) Glomerular Filtration Rate Calc 74 mL/min (>90) BUN/Creatinine Ratio 12.9 (10.0-20.0) Serum Glucose 268 mg/dL (74-106) Calcium Level 8.9 mg/dL (8.7-10.4) Total Bilirubin 0.4 mg/dL (0.2-1.0) Aspartate Amino Transferase (AST) 20 U/L (13-40) Alanine Aminotransferase (ALT) 17 U/L (7-40) Alkaline Phosphatase 93 U/L (46-116) Total Protein 6.2 g/dL (5.7-8.2) Albumin 4.0 g/dL (3.2-4.8) Hemoglobin A1c 9.9 % A1C (<5.7) Other Laboratory Tests 02/25/25 06:15 Brief Hx & Hospital Course: Patient had a mechanical fall and sustained injury to the right knee complaining of severe pain to the right knee admitted CT right knee showed no fracture MRI right knee showed no fracture no tear of the menisci or ligaments patient only had contusion of the middle and lateral tibial plateau given knee brace pain medications seen by orthopedic Dr Mabel Gilmore. Advised weight-bearing as tolerated walker pain meds and follow up. Discharged Consults/Reason for consult Orthopedic Dr. Mabel Gilmore Operations or Procedures CT right knee MRI right knee Condition at Discharge: Fair Final Diagnosis/Problems List Acute right knee pain status post mechanical fall two weeks ago, CT negative for any fracture, MRI right knee shows no fracture no injury to the ligaments or meniscus, only contusion of the medial and lateral aspects of the tibial plateau, ortho Dr. Mabel Gilmore advised weight-bearing as tolerated knee brace and walker and pain medication Uncontrolled diabetes type 2 with blood glucose 401 A1c 9.9 aggressive insulin sliding scale Mechanical fall Hypercholesterolemia Hypertension Discharge Disposition: Home Discharge Instruct/Medications Diet: Cardiac 2g Na,low cholest Activity: Light activity Follow Up/Referral: Follow up with the primary Dr in one week Follow up with the orthopedic Dr Alfonso in two weeks Medications: Matthews Transmitted to pharmacy Scheduled Aspirin (Aspirin Low Dose), 1 TAB PO DAILY, (Reported) Atorvastatin Calcium (Atorvastatin Calcium), 1 TAB PO DAILY, (Reported) Hydrochlorothiazide (Hydrochlorothiazide), 1 TAB PO DAILY, (Reported) Scheduled PRN Hydrocodone-Acetaminophen (Hydrocodone Bitartrate/AC 5-325 mg), 1 TAB PO QID PRN Miscellaneous Medications Calcium Carbonate-Cholecalcife (Oyster Shell Calcium 500-10 mg-Mcg), 1 TAB PO, (Reported) 39 (Time taken for discharge summary 39 minutes) Discharge Statement: "Patient was advised to return to the ER or call 911 if any headaches, dizziness, shortness of breath, chest pain, abdominal pain, bleeding, fevers, or worsening of medical condition. Patient was counseled about treatment plan, medications, possible side effects, patientverbalized understanding. All questions were answered to the best of my ability. This discharge took greater then 30 minutes in planning, reviewing documentation, counseling the patient, and discussing with other team members." DME: Diagnosis: Patient with severe right knee pain unable to walk ASSESSMENT ASSESSMENT Hospital Course Uneventful Assessment Acute right knee pain status post mechanical fall two weeks ago, CT negative for any fracture, MRI right knee shows no fracture no injury to the ligaments or meniscus, only contusion of the medial and lateral aspects of the tibial plateau, ortho Dr. Mabel Gilmore advised weight-bearing as tolerated knee brace and walker and pain medication Uncontrolled diabetes type 2 with blood glucose 401 A1c 9.9 aggressive insulin sliding scale Mechanical fall Hypercholesterolemia Hypertension Date of Service: Feb 26, 2025 Billing Provider: SHIRA MONTES MD Common Visit Codes: [id number] DISCH DAY >30min SHIRA MONTES MD Feb 26, 2025 11:12
[2025-02-26 12:50] VITALS: BP 119/71; PULSE 68; RESP 19; TEMP 97.4; O2SAT 96
[2025-02-26 13:00] VITALS: BP 119/71; PULSE 68; RESP 19; TEMP 97.4; O2SAT 96
== END 2025-02-26 14:44 | disposition home or self-care (01) | DRG 554 ==
LOC: ER 15:24 → OVERFLOW 19:07 → EAST 19:09
PROVIDERS: ADMIT Family Medicine; ATTEND Family Medicine
DX: M17.11 Unilateral primary osteoarthritis, right knee (principal); E11.65 Type 2 diabetes mellitus with hyperglycemia; I10 Essential (primary) hypertension; D72.829 Elevated white blood cell count, unspecified; E78.00 Pure hypercholesterolemia, unspecified; S80.01XA Contusion of right knee, initial encounter; W18.30XA Fall on same level, unspecified, initial encounter; Y93.89 Activity, other specified; Y92.89 Other specified places as the place of occurrence of the external cause; Y99.8 Other external cause status
CPT/HCPCS: 36415; 73700; 73721; 80048; 80053; 82962; 83036; 85025; 96361; 96374; G0378; J1815; J2405